=== PATIENT | male | born 1995 | race Caucasian/White ===

== ENCOUNTER 2016-12-01 16:20 | Emergency (ER) | payer SELFPAY ==
--- NOTE | 2016-12-01 16:38 | NUR ---
PATIENT DID NOT ANSWER WHEN CALLED PATIENT IS LWBS.
== END 2016-12-01 16:38 | disposition left against medical advice (07) ==
LOC: MED 16:20
DX: R10.9 Unspecified abdominal pain (principal); Z53.21 Procedure and treatment not carried out due to patient leaving prior to being seen by health care provider

== ENCOUNTER 2016-12-04 15:11 | Emergency (ER) | payer SELFPAY ==
[~2016-12-04] VITALS: Ht 167.6 cm; Wt 96.6 kg
[2016-12-04 15:37] VITALS: BP 154/67
--- NOTE | 2016-12-04 15:45 | NUR ---
Patient to bed 07.
--- NOTE | 2016-12-04 15:46 | NUR ---
Dr. Tejada evaluating patient at bedside.
[2016-12-04] MEDS ORDERED: NACL 0.9% 1,000 ML IV SCH (15:48)
[2016-12-04] MEDS ORDERED: ONDANSETRON 4 MG/2 ML VIAL IVP ONE (15:50)
[2016-12-04] MEDS ORDERED: FAMOTIDINE 20 MG/2 ML VIAL IVP ONE (15:50)
--- NOTE | 2016-12-04 15:50 | NUR ---
PT STATES RT. SIDE UMBILICAL AREA PROTRUDES WHEN BENDING DOWN AND SITTING. DENIES VOMITING/DIARRHEA. NO HX. NO MEDS. SKIN IS PINK/WARM/DRY; AAOX4 WITH EVEN AND STEADY GAIT; LUNGS CLEAR BL; HR EVEN AND REGULAR; PT DENIES ANY FEVER, CP, SOB, OR COUGH AT THIS TIME; PATIENT STATES PAIN OF 0/10 AT THIS TIME; VSS; PATIENT POSITIONED FOR COMFORT; HOB ELEVATED; BEDRAILS UP X2; BED DOWN. ER MD MADE AWARE OF PT STATUS.
--- NOTE | 2016-12-04 16:10 | NUR ---
PT REFUSED PEPCID AND ZOFRAN. AWARE.
--- NOTE | 2016-12-04 17:02 | NUR ---
Patient to CT via wheelchair per tech.
--- NOTE | 2016-12-04 17:02 | NUR ---
PT LEFT FOR CT VIA WHEELCHAIR PER TECH
--- NOTE | 2016-12-04 17:13 | NUR ---
Patient back from CT via wheelchair per tech.
--- NOTE | 2016-12-04 17:21 | NUR ---
IV NS INFUSED.
[2016-12-04 18:00] VITALS: BP 138/65
--- NOTE | 2016-12-04 18:10 | NUR ---
Patient discharged with v/s stable. Written and verbal after care instructions given and explained. Patient alert, oriented and verbalized understanding of instructions. Ambulatory with steady gait. All questions addressed prior to discharge. ID band removed. Patient advised to follow up with PMD. Rx of TYLENO given. Patient educated on indication of medication including possible reaction and side effects. Opportunity to ask questions provided and answered. PT STATES NO PAIN AND DISCOMFORT AT THIS TIME. PT'S MOTHER AT BEDSIDE.
== END 2016-12-04 18:10 | disposition home or self-care (01) ==
LOC: MED 15:11
DX: R91.1 Solitary pulmonary nodule (principal); R10.31 Right lower quadrant pain
CPT/HCPCS: 36415; 74177; 80053; 81001; 82150; 83690; 85025; 96360; 99285; J7030; Q9967

== ENCOUNTER 2020-10-11 19:38 | Emergency (ER) | payer MEDICAID ==
[~2020-10-11] VITALS: Ht 167.6 cm; Wt 88.1 kg
[2020-10-11 19:53] VITALS: BP 139/99
--- NOTE | 2020-10-11 20:02 | NUR ---
PT AMBULATED TO ED BED 9.
--- NOTE | 2020-10-11 20:07 | NUR ---
PATIENT BIB SELF C/O SORE THROAT S/P SWALLOWING "DRY MEAT" LESS THAN ONE HOUR AGO, STATING "IT FEELS STUCK AND IT HURTS TO SWALLOW". PATIENT A&O X4. PATIENT DENIES SOB. UPON ASSESSMENT, NO NOTED FOREIGN MATERIAL IN THROAT, NO NOTED REDNESS OR SWELLING. MEDHX: NONE ALLERGIES: NKA
--- NOTE | 2020-10-11 20:14 | NUR ---
ERMD AT BEDSIDE PERFORMING ASSESSMENT.
--- NOTE | 2020-10-11 20:37 | NUR ---
LABS DRAWN AND HAND GIVEN TO BHARTI [employer] TECHNICIAN INSTRUCTOR.
[2020-10-11 20:52] LABS: CARBON DIOXIDE 27.4 mmol/L (21-32); CREATININE 0.8 mg/dL (0.6-1.3); POTASSIUM 3.4 mmol/L (3.5-5.1)
[2020-10-11 20:54] LABS: BASOPHILS # (AUTO) 0.1 K/uL (0.00-0.22); BASOPHILS % (AUTO) 0.7 % (0.0-2.0); EOSINOPHILS # (AUTO) 0.2 K/uL (0-0.4); EOSINOPHILS % (AUTO) 1.6 % (0.0-4.0); HEMATOCRIT 45.3 % (36-52); HEMOGLOBIN 16.1 g/dL (12.0-18.0); LYMPHOCYTES # (AUTO) 3.5 K/uL (2.0-11.5); LYMPHOCYTES % (AUTO) 36.5 % (20.5-51.1); MEAN CORPUSCULAR HEMOGLOBIN 31 pg (27-31); MEAN CORPUSCULAR HGB CONC 36 g/dL (33-37); MEAN CORPUSCULAR VOLUME 85.8 fL (80-94); MONOCYTES # (AUTO) 0.7 K/uL (0.8-1.0); MONOCYTES % (AUTO) 7.2 % (1.7-9.3); NEUTROPHILS # (AUTO) 5.2 K/uL (1.8-7.7); PLATELET COUNT (AUTO) 338 K/uL (140-450); RED BLOOD CELL COUNT(AUTO) 5.28 MIL/uL (4.20-6.10); RED CELL DISTRIBUTION WIDTH 12.9 % (11.6-13.7); WHITE BLOOD COUNT (AUTO) 9.6 K/uL (4.8-10.8)
--- NOTE | 2020-10-11 21:17 | NUR ---
Alize harrison in [facility] - 10/11/20 at 2117 by JOSE L PT TAKEN TO CT
--- NOTE | 2020-10-11 21:17 | NUR ---
PT TAKEN TO CT BY TECH VIA WHEELCHAIR.
--- NOTE | 2020-10-11 21:28 | NUR ---
PT RETURNED FROM CT VIA W/C.
[2020-10-11 23:39] VITALS: BP 130/80
--- NOTE | 2020-10-11 23:40 | NUR ---
Patient discharged with v/s stable. Written and verbal after care instructions given and explained. Patient verbalized understanding. Ambulatory with steady gait. All questions addressed prior to discharge. Advised to follow up with PMD. IV removed, catheter intact and site benign. Applied folded 4x4 gauze and tape to stop bleeding.
== END 2020-10-11 23:40 | disposition home or self-care (01) ==
LOC: MED 19:38
DX: M54.2 Cervicalgia (principal); R07.0 Pain in throat; R13.10 Dysphagia, unspecified
CPT/HCPCS: 36415; 70491; 80048; 85025; 99285

== ENCOUNTER 2021-04-05 22:20 | Emergency (ER) | payer MEDICAID, OTHER ==
--- NOTE | 2021-04-05 22:30 | NUR ---
PATIENT CALLED TO BE TRIAGE, NO RESPONSE PATIENT LEFT WITHOUT BEING SEEN BY DR. BOSS. NO FURTHER CARE PROVIDED FOR PATIENT.
--- NOTE | 2021-04-05 22:54 | NUR ---
CALLED FOR THE SECOND TIME, NO RESPONSE
--- NOTE | 2021-04-05 23:01 | NUR ---
CALLED FOR THE THIRD TIME , NO RESPONSE
== END 2021-04-05 22:30 | disposition left against medical advice (07) ==
LOC: MED 22:20
DX: Z00.01 Encounter for general adult medical examination with abnormal findings (principal); Z53.21 Procedure and treatment not carried out due to patient leaving prior to being seen by health care provider

== ENCOUNTER 2021-04-09 18:43 | Emergency (ER) | payer OTHER ==
--- NOTE | 2021-04-09 19:10 | NUR ---
PATIENT CALLED FOR TRIAGE, NO RESPONSE PATIENT LEFT WITHOUT BEING SEEN BY DR. RIOS. NO FURTHER CARE PROVIDED FOR PATIENT.
--- NOTE | 2021-04-09 19:20 | NUR ---
CALLED FOR THE SECOND TIME, NO RESPONSE
--- NOTE | 2021-04-09 19:30 | NUR ---
CALLED FOR THE THIRD TIME ,NO RESPONSE
== END 2021-04-09 19:10 | disposition left against medical advice (07) ==
LOC: MED 18:43
DX: Z53.21 Procedure and treatment not carried out due to patient leaving prior to being seen by health care provider (principal)

== ENCOUNTER 2024-02-08 18:28 | Emergency (ER) | payer OTHER | END 2024-02-08 19:40 | disposition left against medical advice (07) | LOC: MED 18:28 | DX: R09.89 Other specified symptoms and signs involving the circulatory and respiratory systems (principal); Z53.21 Procedure and treatment not carried out due to patient leaving prior to being seen by health care provider ==